=== PATIENT | female | born 1985 | race Caucasian/White ===

== ENCOUNTER → 2021-11-08 10:12 | Outpatient (CLI) | payer BC, SELFPAY ==
--- NOTE | ~2021-11-08 | US_ITS ---
EXAMINATION: US OB <= 14 weeks fetus DATE: 11/08/2021 10:34 INDICATION: Gestational dating TECHNIQUE: Real-time transabdominal and transvaginal obstetric ultrasound. FINDINGS: No prior studies for comparison. The uterus measures 12.9 x 7 x 9.3 cm. There is an intrauterine gestational sac, with pole iden tified. The crown rump length measures 4.7 cm, which correlates with a estimated gestational age of 11 weeks 3 days. heart tones are identified measuring 165 bpm. IMPRESSION: 1. SL IUP with an EGA of 11 weeks, 3 days (EDC by current ultrasound of 05/27/2022). Reviewed, dictated and finalized at location A. IMPRESSION: 1. SL IUP with an EGA of 11 weeks, 3 days (EDC by current ultrasound of 022).
== END ==
PROVIDERS: PCP Advanced Practice Midwife; Visit Provider Advanced Practice Midwife
DX: O26.851 Spotting complicating pregnancy, first trimester (principal); Z3A.11 11 weeks gestation of pregnancy
CPT/HCPCS: 76801

== ENCOUNTER → 2022-03-31 12:43 | Outpatient (CLI) | payer BC, SELFPAY ==
--- NOTE | ~2022-03-31 | US_ITS ---
EXAMINATION: US OB follow up DATE: 03/31/2022 13:06 INDICATION: Gestational size greater than dates. TECHNIQUE: Real-time transabdominal obstetric ultrasound. FINDINGS: Ultrasound dated 11/08/2021 There is a single living fetus in vertex presentation. The placenta is fundal/posterior without plac enta previa. cardiac activity and movement is noted with a heart rate of 133 beats per minute. T he amniotic fluid volume is normal. OSEAS measures 18.9 cm. The following biometric data were obtained: BPD: 80mm corresponds to gestational age 32 weeks 1 days. Head circumference: 296mm corresponds to gestational age 32 weeks 5 days. Abdominal circumference: 285mm corresponds to gestational age 32 weeks 4 days. Femur length: 60mm corresponds to gestational age 31 weeks 2 days. Estimated weight: 1908grams +/- 286grams, 42.9% by Hadlock method.] IMPRESSION: 1. Single living intrauterine in vertex presentation with an estimated gestational age of 32 weeks 0 days by inititial ultrasound. Appropriate interval growth. 2. Normal placenta. Reviewed, dictated and finalized at location A. IMPRESSION: 1. Single living intrauterine in vertex presentation with an estimat ed gestational age of 32 weeks 0 days by inititial ultrasound. Appropriate int erval growth. 2. Normal placenta.
== END ==
PROVIDERS: PCP Obstetrics & Gynecology Gynecology; Visit Provider Obstetrics & Gynecology Gynecology
DX: Z34.92 Encounter for supervision of normal pregnancy, unspecified, second trimester (principal); Z3A.32 32 weeks gestation of pregnancy
CPT/HCPCS: 76816

== ENCOUNTER 2022-04-28 09:26 | Outpatient (CLI) | payer BC, SELFPAY ==
[2022-04-28 09:44] VITALS: BP 122/80; PULSE 83
[2022-04-28 09:46] VITALS: BP 125/83; PULSE 75
[2022-04-28 09:54] LABS: Basophils Percent Auto 0.4 % (0.2-1.2); Eosinophils Percent Auto 0.4 % (0-4.4); Hematocrit 35.9 % (37.0-47.0); Hemoglobin 11.9 g/dL (12.0-15.0); Immature Granulocyte Absolute 0.06 K/mm3 (0.00-0.031); Immature Granulocyte Percent A 0.8 % (0-0.5); Lymphocytes Absolute Auto 1.29 K/mm3 (0.9-3.2); Lymphocytes Percent Auto 16.7 % (18.3-44.2); Mean Corpuscular HGB Conc 33.1 g/dl (32-36); Mean Corpuscular Hemoglobin 29.5 pg (26-34); Mean Corpuscular Volume 88.9 fl (80-100); Mean Platelet Volume 10.6 fl (7.4-10.4); Monocytes Absolute Auto 0.5 K/mm3 (0.1-0.6); Monocytes Percent Auto 6.5 % (2.6-8.5); Neutrophils Absolute Auto 5.8 K/mm3 (1.3-6.7); Neutrophils Percent Auto 75.2 % (45.5-73.1); Platelet Count Result 224 k/mm3 (150-375); Red Blood Count 4.04 M/mm3 (4.2-5.4); Red Cell Distribution Width 13.4 % (11.5-14.5); White Blood Count 7.7 K/mm3 (4.5-10.0)
[2022-04-28 10:01] VITALS: BP 112/73; PULSE 87
[2022-04-28 10:09] LABS: Alanine Aminotransferase 22 U/L (6-35); Albumin Level 3.6 g/dL (3.5-5.1); Alkaline Phosphatase 153 U/L (38-126); Anion Gap 10 mmol/L (8-16); Aspartate Amino Transferase 21 U/L (14-36); Bilirubin,Total 0.2 mg/dL (0.2-1.3); Blood Urea Nitrogen 8 mg/dL (7-17); Calcium 8.6 mg/dL (8.4-10.2); Carbon Dioxide 21 mmol/L (22-30); Chloride 105 mmol/L (98-107); Estimated Glomerular Filt Rate > 60; Glucose 86 mg/dL (65-110); Potassium 4.2 mmol/L (3.4-5.0); Sodium 136 mmol/L (137-145); Uric Acid 4.5 mg/dL (2.5-7.5)
[2022-04-28 10:16] VITALS: BP 116/81; PULSE 86
[2022-04-28 10:33] LABS: Add Urine Microscopic? YES; Appearance Urine Cloudy (Clear); Bacteria Urine 4+ /hpf; Bilirubin Urine Negative (Negative); Blood Urine Negative (Negative); Color Urine Yellow (Yellow); Creatinine Urine 124.1 mg/dL; Glucose Urine UA Negative (Negative); Ketones Urine Trace mg/dL (Negative); Leukocyte Esterase Ur 1+ LEU/UL (NEGATIVE); Mucus Urine Rare /lpf; Nitrate Urine Negative (Negative); Protein Urine Negative (Negative); Squamous Epithelial Cell Urine Few /hpf (Few); Total Protein Urine Random 6 mg/dL; Ur Ttl Prot Creatinine Ratio 0.05 mg/mg (0-0.20); Urobilinogen Urine 0.2 mg/dL (<2.0); pH Urine 6.5 (5.0-9.0)
--- NOTE | 2022-04-28 11:00 | PC.NURSE ---
Called Dante Marc CNM with lab results, and BPs. October D/C home with 24hr urine.
--- NOTE | 2022-04-28 11:06 | PM.OBTRLD ---
OB - Triage/Final Diagnosis Visit Information Reason for evaluation: other (elevated blood pressure. rule out preeclampsia. ) Comments/Additional reasons for admission: I have assessed the risk for this patient, Monie Ballard, and determined that she would benefit from observation care. Evaluation Laboratory results: Laboratory Tests 04/28/22 04/28/22 04/28/22 09:43 09:43 09:43 WBC 7.7 RBC 4.04 L Hgb 11.9 L Hct 35.9 L MCV 88.9 MCH 29.5 MCHC 33.1 RDW 13.4 Plt Count 224 MPV 10.6 H Immature Gran % (Auto) 0.8 H Neut % (Auto) 75.2 H Lymph % (Auto) 16.7 L [place] % (Auto) 6.5 Eos % (Auto) 0.4 Baso % (Auto) 0.4 Lymph # (Auto) 1.29 [place] # (Auto) 0.5 Eos # (Auto) 0.0 Baso # (Auto) 0.0 Abs Immat Gran (auto) 0.06 H Absolute Neuts (auto) 5.8 Absolute Nucleated RBC 0.0 Nucleated RBC % 0.0 Sodium Potassium Chloride Carbon Dioxide Anion Gap BUN Creatinine Estim Creat Clear Calc Estimated GFR Glucose Uric Acid Calcium Total Bilirubin AST ALT Alkaline Phosphatase Total Protein Albumin Urine Color Yellow Urine Appearance Cloudy H Urine pH 6.5 Ur Specific [place] 1.020 Urine Protein Negative Urine Glucose (UA) Negative Urine Ketones Trace Ur Blood (Man) Negative Urine Nitrate Negative Urine Bilirubin Negative Urine Urobilinogen 0.2 Ur Leukocyte Esterase 1+ H Urine RBC 3-5 H Urine WBC 10-15 H Ur Squamous Epith Cells Few Urine Bacteria 4+ H Urine Mucus Rare U Random Total Protein 6 Urine Creatinine 124.1 Protein/Creat Ratio 2 0.05 04/28/22 09:43 WBC RBC Hgb Hct MCV MCH MCHC RDW Plt Count MPV Immature Gran % (Auto) Neut % (Auto) Lymph % (Auto) [place] % (Auto) Eos % (Auto) Baso % (Auto) Lymph # (Auto) [place] # (Auto) Eos # (Auto) Baso # (Auto) Abs Immat Gran (auto) Absolute Neuts (auto) Absolute Nucleated RBC Nucleated RBC % Sodium 136 L Potassium 4.2 Chloride 105 Carbon Dioxide 21 L Anion Gap 10 BUN 8 Creatinine 0.70 Estim Creat Clear Calc Not Reportable Estimated GFR > 60 Glucose 86 Uric Acid 4.5 Calcium 8.6 Total Bilirubin 0.2 AST 21 ALT 22 Alkaline Phosphatase 153 H Total Protein 6.0 L Albumin 3.6 Urine Color Urine Appearance Urine pH Ur Specific [place] Urine Protein Urine Glucose (UA) Urine Ketones Ur Blood (Man) Urine Nitrate Urine Bilirubin Urine Urobilinogen Ur Leukocyte Esterase Urine RBC Urine WBC Ur Squamous Epith Cells Urine Bacteria Urine Mucus U Random Total Protein Urine Creatinine Protein/Creat Ratio 2 Vital signs: Vital Signs - 24 hr 04/28/22 09:44 04/28/22 09:46 04/28/22 10:01 Pulse Rate 83 75 87 Blood Pressure 122/80 125/83 112/73 04/28/22 10:16 Pulse Rate 86 Blood Pressure 116/81
== END 2022-04-28 11:10 | disposition home or self-care (01) ==
LOC: ANHOBOP 09:26 → ANHOBPP 09:27
PROVIDERS: Visit Provider Obstetrics & Gynecology Gynecology
DX: O13.9 Gestational [pregnancy-induced] hypertension without significant proteinuria, unspecified trimester (principal); Z3A.00 Weeks of gestation of pregnancy not specified
CPT/HCPCS: 36415; 59025; 80053; 81001; 82570; 84156; 84550; 85025; 87086; 99199

== ENCOUNTER 2022-04-29 12:16 | Outpatient (CLI) | payer BC, SELFPAY ==
[2022-04-29 12:16] VITALS: BMI 44.5
[2022-04-29 13:24] LABS: Collection Time Urine 24 HOURS
[2022-04-29 13:29] LABS: Total Volume 24 Hour Urine 2500 ml
[2022-04-29 13:30] LABS: Specific Gravity Ur 1.015
[2022-04-29 13:39] LABS: Creatinine Urine 71.9 mg/dL; Patient Weight 276 Lbs; Total Protein Urine 24 Hr 200 mg/24hr (28-141); Total Protein Urine Random 8 mg/dL
== END 2022-04-29 12:17 | disposition home or self-care (01) ==
LOC: ANHOBOP 12:32
PROVIDERS: Visit Provider Advanced Practice Midwife
DX: O13.9 Gestational [pregnancy-induced] hypertension without significant proteinuria, unspecified trimester (principal); Z3A.00 Weeks of gestation of pregnancy not specified
CPT/HCPCS: 81050; 82575; 84156

== ENCOUNTER 2022-05-12 10:04 | Inpatient (IN) | payer BC, SELFPAY ==
[2022-05-12] VITALS (18 sets, daily range): BP systolic 107–132; BP diastolic 54–86; PULSE 59–90; TEMP 36.2–37.2; O2SAT 99; BMI 44.6
--- NOTE | ~2022-05-12 | US_ITS ---
EXAMINATION: US OB limited DATE: 05/12/2022 11:01 INDICATION: Third trimester. Amniotic fluid index and presentation. TECHNIQUE: Real-time ultrasound of the pelvis was performed. COMPARISON: Ultrasound 03/31/2022 FINDINGS: There is a single fetus in vertex presentation. The placenta is posterior. heart rate is 151 b eats per minute (bpm). The amniotic fluid index is 11.4 cm cm, which is normal. IMPRESSION: 1. Single living fetus in vertex presentation. 2. Normal amniotic fluid index. Reviewed, dictated and finalized at location A. MAYONNAISE
[2022-05-12 11:32] LABS: Basophils Percent Auto 0.4 % (0.2-1.2); Eosinophils Percent Auto 0.2 % (0-4.4); Hematocrit 37.1 % (37.0-47.0); Hemoglobin 12.5 g/dL (12.0-15.0); Immature Granulocyte Absolute 0.08 K/mm3 (0.00-0.031); Immature Granulocyte Percent A 0.9 % (0-0.5); Lymphocytes Absolute Auto 1.45 K/mm3 (0.9-3.2); Lymphocytes Percent Auto 17.1 % (18.3-44.2); Mean Corpuscular HGB Conc 33.7 g/dl (32-36); Mean Corpuscular Hemoglobin 29.7 pg (26-34); Mean Corpuscular Volume 88.1 fl (80-100); Mean Platelet Volume 11.2 fl (7.4-10.4); Monocytes Absolute Auto 0.6 K/mm3 (0.1-0.6); Monocytes Percent Auto 6.6 % (2.6-8.5); Neutrophils Absolute Auto 6.3 K/mm3 (1.3-6.7); Neutrophils Percent Auto 74.8 % (45.5-73.1); Platelet Count Result 233 k/mm3 (150-375); Red Blood Count 4.21 M/mm3 (4.2-5.4); Red Cell Distribution Width 13.4 % (11.5-14.5); White Blood Count 8.5 K/mm3 (4.5-10.0)
--- NOTE | 2022-05-12 11:35 | LDADM ---
This patient, Monie Ballard, was admitted to Labor/Delivery/Recovery 106 on 05/12/22 at 10:04. Plans for labor, pain management and were discussed with patient. Patient/family oriented to hospital policies and general routines including ID bracelet, bed and alarms, visiting hours, pain management, procedures, bathroom and other care routines, personal items, smoking policy, room service/diet and guest tray routines, infant security routines, and visiting hours. Patient/Family are encouraged to report perceived risks to care and to ask questions if they do not understand what they are told or what they should do. See OBIX for further documentation.
[2022-05-12 11:46] LABS: Alanine Aminotransferase 23 U/L (6-35); Albumin Level 3.7 g/dL (3.5-5.1); Alkaline Phosphatase 201 U/L (38-126); Anion Gap 6 mmol/L (8-16); Aspartate Amino Transferase 21 U/L (14-36); Bilirubin,Total 0.4 mg/dL (0.2-1.3); Blood Urea Nitrogen 9 mg/dL (7-17); Calcium 8.9 mg/dL (8.4-10.2); Carbon Dioxide 20 mmol/L (22-30); Chloride 109 mmol/L (98-107); Estimated CRCL calculation 151 ml/min; Estimated Glomerular Filt Rate > 60; Glucose 81 mg/dL (65-110); Potassium 4.2 mmol/L (3.4-5.0); Sodium 135 mmol/L (137-145)
[2022-05-12] MEDS: miSOPROStol 25 MCG TABLET VAGINAL ×2 (13:20→17:38)
[2022-05-12 14:01] LABS: Uric Acid 5.3 mg/dL (2.5-7.5)
[2022-05-12 14:02] LABS: Creatinine Urine 137.6 mg/dL; Total Protein Urine Random 7 mg/dL; Ur Ttl Prot Creatinine Ratio 0.05 mg/mg (0-0.20)
[2022-05-12 15:30] LABS: Rapid Plasma Reagin Non-Reactive (NonReactive)
[2022-05-12 15:49] LABS: Glucose Point of Care 80 mg/dl (65-105)
--- NOTE | 2022-05-12 18:36 | WPDANESEPP ---
Anes - Eval Pre Procedure Procedure: Labor epidural Date/Time: 05/12/22 18:36 Surgeon: Marcelle Preop Diagnosis: Abdominal pain with contractions Pre Op Diagnosis: Induction of Labor Patient Data Age: 36 Gender: F Height: 1.68 m Weight: 125.5 kg Last Vital Signs Temp 99 F 05/12/22 15:00 Pulse 71 05/12/22 18:31 BP 120/67 05/12/22 18:31 O2 Del Method Room Air 05/12/22 11:33 Allergies Allergy/AdvReac Type Severity Reaction Status Date / Time No Known Allergies Allergy Verified 04/28/22 10:22 Home Medications Medication Instructions Recorded Confirmed Type Humulin N NPH U-100 Insulin 4 units subcut HS 04/28/22 04/28/22 History aspirin 81 mg tablet,delayed 81 mg PO DAILY 04/28/22 05/12/22 History release (Melyssa Low Dose Aspirin) ergocalciferol (vitamin D2) 1,250 1,250 mcg PO WEEKLY 04/28/22 04/28/22 History mcg (50,000 unit) capsule (Vitamin D2) prenat.vits,nicola,[id number] 1 tablet PO HS 04/28/22 04/28/22 History Laboratory Tests 05/12/22 05/12/22 05/12/22 11:18 11:18 11:18 WBC 8.5 K/mm3 K/mm3 (4.5-10.0) RBC 4.21 M/mm3 M/mm3 (4.2-5.4) Hgb 12.5 g/dL g/dL (12.0-15.0) Hct 37.1 % % (37.0-47.0) MCV 88.1 fl fl (80-100) MCH 29.7 pg pg (26-34) MCHC 33.7 g/dl g/dl (32-36) RDW 13.4 % % (11.5-14.5) Plt Count 233 k/mm3 k/mm3 (150-375) MPV 11.2 fl H fl (7.4-10.4) Immature Gran % (Auto) 0.9 % H % (0-0.5) Neut % (Auto) 74.8 % H % (45.5-73.1) Lymph % (Auto) 17.1 % L % (18.3-44.2) [place] % (Auto) 6.6 % % (2.6-8.5) Eos % (Auto) 0.2 % % (0-4.4) Baso % (Auto) 0.4 % % (0.2-1.2) Lymph # (Auto) 1.45 K/mm3 K/mm3 (0.9-3.2) [place] # (Auto) 0.6 K/mm3 K/mm3 (0.1-0.6) Eos # (Auto) 0.0 K/mm3 K/mm3 (0-0.3) Baso # (Auto) 0.0 K/mm3 K/mm3 (0.0-0.1) Abs Immat Gran (auto) 0.08 K/mm3 H K/mm3 (0.00-0.031) Absolute Neuts (auto) 6.3 K/mm3 K/mm3 (1.3-6.7) Absolute Nucleated RBC 0.0 K/mm3 K/mm3 (0.0-0.012) Nucleated RBC % 0.0 % % (0.0-0.2) Sodium Potassium Chloride Carbon Dioxide Anion Gap BUN Creatinine Estim Creat Clear Calc Estimated GFR Glucose POC Capillary Glucose Uric Acid 5.3 mg/dL mg/dL (2.5-7.5) Calcium Total Bilirubin AST ALT Alkaline Phosphatase Total Protein Albumin U Random Total Protein Urine Creatinine Protein/Creat Ratio 2 RPR Non-reactive (NonReactive) Blood Type Antibody Screen 05/12/22 05/12/22 05/12/22 11:18 11:18 11:20 WBC RBC Hgb Hct MCV MCH MCHC RDW Plt Count MPV Immature Gran % (Auto) Neut % (Auto) Lymph % (Auto) [place] % (Auto) Eos % (Auto) Baso % (Auto) Lymph # (Auto) [place] # (Auto) Eos # (Auto) Baso # (Auto) Abs Immat Gran (auto) Absolute Neuts (auto) Absolute Nucleated RBC Nucleated RBC % Sodium 135 mmol/L L mmol/L (137-145) Potassium 4.2 mmol/L mmol/L (3.4-5.0) Chloride 109 mmol/L H mmol/L (98-107) Carbon Dioxide 20 mmol/L L mmol/L (22-30) Anion Gap 6 mmol/L L mmol/L (8-16) BUN 9 mg/dL mg/dL (7-17) Creatinine 0.60 mg/dL L mg/dL (0.7-1.0) Estim Creat Clear Calc 151 ml/min ml/min Estimated GFR > 60 (5
[2022-05-12] MEDS: INSULIN HUMAN NPH (*BKC) 100 UNITS/ML SUB-Q (19:48)
--- NOTE | 2022-05-12 19:51 | WPDOBADMIT ---
Obstetrics - Admit Note Admission Note: record reviewed. No pertinent additions to the history and/or any subsequent changes in the physical findings that are not consistent with the expected course of the were found. Additions to the history and/or subsequent changes in the physical findings follow. Gestational hypertension at term.
[2022-05-12 20:09] LABS: Glucose Point of Care 89 mg/dl (65-105)
--- NOTE | 2022-05-12 20:58 | PM.OBPNLAB ---
Pain Control Date/time seen: 05/12/22 20:45 Pain control: tolerating well Comments: Reports mild, occasional cramping. Pelvic Exam Dilation (cm): 0 Effacement (%): 50 station: -3 Amniotic membrane status: Intact Comments: Cervix slightly softer than exam in the office this am but still moderate to firm consistency. Contractions Monitor mode: External Contraction frequency: 0 (irregular) Contraction pattern: Irregular Contraction intensity: Mild Status status: Category l Assessment and Plan Assessment: induction ongoing Comments: Given minimal changes (only slightly softer cervix), will place Cervidil for overnight cervical ripening. Discussed plan of care with Monie and her mother. Consider black balloon for cervical ripening/dilation if indicated by exam in the am. Anticipate vaginal . BPs WNL.
[2022-05-12] MEDS: DINOPROSTONE 10 MG VAG INSERT VAGINAL (21:43)
[2022-05-12] MEDS: diphenhydrAMINE HCl CAP 25 MG CAPSULE PO (23:43)
[2022-05-13] VITALS (156 sets, daily range): BP systolic 95–156; BP diastolic 38–112; PULSE 58–190; TEMP 36.1–36.9; O2SAT 84–100
[2022-05-13 07:01] LABS: Glucose Point of Care 91 mg/dl (65-105)
[2022-05-13] MEDS: OXYTOCIN 30 UNITS/NS 500 ML 30 UNITS/500 ML BAG 125 UNITS IV CONT (09:21)
[2022-05-13] MEDS: LACTATED RINGERS 1,000 ML 125 ML IV CONT ×2 (09:21→17:33)
--- NOTE | 2022-05-13 10:36 | PM.OBPNLAB ---
Pain Control Date/time seen: 05/13/22 0900 Pain control: tolerating well Pelvic Exam Dilation (cm): 1 Effacement (%): 40 station: -3 Amniotic membrane status: Intact Comments: outer os firm, internal os soft. Contractions Monitor mode: External Contraction frequency: 0 (irregular) Contraction pattern: Irregular Contraction intensity: Mild Status status: Category l Assessment and Plan Assessment: induction ongoing Comments: CNM at bedside. on initial cervical exam the cervix is closed and a small portion at the os feels very firm. Discussed with Monie the option of manually Stretching the scar tissue at her cervix and she is agreeable. gentle pressure was applied to the cervix with 1 digit and much gel. The cervix stretched to 1 cm. The internal portion palpates soft while the external portion remains firm. Discussed options with Monie and her partner at this time. Discussed the option of placing a Campos balloon for further cervical ripening and dilation. She is agreeable. Offered epidural before placement and she declines. Campos balloon inserted using a stylet through the cervical os easily. Inflated with 60 mL sterile saline easily. Stylet removed. Tubing secured patient's thigh. Patient tolerated procedure extremely well with minimal discomfort. Plan to have RN apply traction once hourly to the Campos balloon. Will consider amniotomy after Campos balloon is expelled. Anticipate vaginal .
[2022-05-13 11:11] LABS: Glucose Point of Care 103 mg/dl (65-105)
[2022-05-13 15:09] LABS: Glucose Point of Care 114 mg/dl (65-105)
--- NOTE | 2022-05-13 15:51 | PM.OBPNLAB ---
Pain Control Date/time seen: 05/13/22 15:45 Pain control: tolerating well Pelvic Exam Dilation (cm): 4 Effacement (%): 60 station: -3 Amniotic membrane status: Intact Contractions Monitor mode: External Contraction frequency: 0 (irregular) Contraction pattern: Irregular Contraction intensity: Mild Status status: Category l Assessment and Plan Assessment: induction ongoing Comments: discussed plan of care with parmjit and her partner. Cervical exam done around Campos balloon. Scar tissue at the outer os remains firm. But the outer os appears to be about 3 cm. Campos balloon deflated and removed. Exam then 3.5 cm, 60% effaced, -3 station. Discussed options with parmjit including Continuing Pitocin and amniotomy. Discussed risks and benefits of amniotomy. Also discussed possible benefit of IUPC placement. Parmjit desires to proceed. AROM performed. A small amount of clear fluid returned. IUPC inserted easily through cervix, clear fluid returned. She tolerated these procedures extremely well with minimal discomfort. Plan to titrate Pitocin as needed to achieve adequate contraction pattern. Anticipate vaginal .
--- NOTE | 2022-05-13 16:40 | WPDANESEPP ---
Anes - Eval Pre Procedure Procedure: Labor Epidural Date/Time: 05/13/22 16:40 Surgeon: Tari Preop Diagnosis: Pain during labor Pre Op Diagnosis: Induction of Labor Patient Data Age: 36 Gender: F Height: 1.68 m Weight: 125.5 kg Last Vital Signs Temp 36.4 C L 05/13/22 04:02 Pulse 68 05/13/22 16:36 BP 131/68 05/13/22 16:36 Pulse Ox 99 05/13/22 16:39 O2 Del Method Room Air 05/12/22 11:33 Allergies Allergy/AdvReac Type Severity Reaction Status Date / Time No Known Allergies Allergy Verified 04/28/22 10:22 Home Medications Medication Instructions Recorded Confirmed Type Humulin N NPH U-100 Insulin 4 units subcut HS 04/28/22 04/28/22 History aspirin 81 mg tablet,delayed 81 mg PO DAILY 04/28/22 05/12/22 History release (Melyssa Low Dose Aspirin) ergocalciferol (vitamin D2) 1,250 1,250 mcg PO WEEKLY 04/28/22 04/28/22 History mcg (50,000 unit) capsule (Vitamin D2) prenat.vits,nicola,[id number] 1 tablet PO HS 04/28/22 04/28/22 History Laboratory Tests 05/12/22 05/13/22 05/13/22 19:52 06:57 11:08 POC Capillary Glucose 89 mg/dl mg/dl 91 mg/dl mg/dl 103 mg/dl mg/dl (65-105) (65-105) (65-105) 05/13/22 15:05 POC Capillary Glucose 114 mg/dl H mg/dl (65-105) : gestational age HCG: positive Patient hx anesthesia problems: none Family hx anesthesia problems: none Results Review: All pre-operative results and documents have been reviewed as part of the pre-operative evaluation. [facility] Past Medical History Medical History Abnormal MRI of head Diabetes in Gestational diabetes Migraine headache with aura Morbid obesity MVP (mitral valve prolapse) and not yet delivered Family History Family History Mother Hypertension Grandparent Breast cancer Sibling Pre-eclampsia in third trimester Social History Social History Social History: Smoking status: Never smoker Second hand tobacco smoke exposure: No Alcohol intake: current Drinks per week: 2 Substance use: never Substance use type: does not use Lack of Transportation: No Lack of Food: Never True Current Housing: I Have Housing Concerned About Future Housing: No Difficulty Paying Gas/Electric Bills: No Difficulty Paying for Meds: No Currently Unemployed: No Education: High School Diploma/GED Difficulty w/ Childcare or Family Care: No Gender identity (if verbalized by the patient): Female Sexual Orientation (if Verbalized by the Patient): Straight or Heterosexual Spiritual care concerns: No Exam Day of Procedure 05/13/22 16:40
[2022-05-13 18:32] LABS: Glucose Point of Care 93 mg/dl (65-105)
[2022-05-13 23:19] LABS: Glucose Point of Care 96 mg/dl (65-105)
[2022-05-14] VITALS (49 sets, daily range): BP systolic 83–132; BP diastolic 43–90; PULSE 25–114; RESP 16–18; TEMP 36.4–36.9; O2SAT 83–100
--- NOTE | 2022-05-14 00:55 | PM.OBPRVD ---
OB - Delivery Note Procedure Delivery date: 05/14/22 Procedure: Events: Gestational Diabetes and Gestational Hypertension Induction method: Per Misoprostol Protocol and Per Cervidil Protocol Delivery augmentation: Rupture of Membranes and Pitocin Delivery monitor: External FHT, External Uterine and Internal Uterine Route of delivery: Episiotomy description: None Laceration Description: Perineal - 1st Degree Delivery repair: vicryl Specimen: No Quantitative Blood Loss (ml): 100 Anesthesia type: Epidural Disposition: Floor Narrative: CNM called when patient was complete dilation and feeling urge to push. Patient quickly brought the head to . She delivered the head slowly over 2 pushes. There was fair restitution. The anterior, right, shoulder delivered easily followed by the posterior shoulder and the remainder of the . The infant was placed on the maternal abdomen and care was assumed by the nursery team. The cord was doubly clamped and cut after 1 minute of life. Cord blood and gases were obtained. The placenta was delivered several minutes later after gentle fundal massage and cord traction. A true knot was observed. A first-degree perineal laceration was repaired in the usual fashion. [place] Baby Date of : 05/14/22 Time of : 00:06 Weeks of gestation at delivery: 38 Weight (pounds): 6 Weight (ounces): 6 presentation: vertex position: Left Occiput Anterior Placenta delivery description: Spontaneous Cord Vessel Description: 3 Vessels, True Knot, Clamped/Cut (after one minute of life) and Delayed Cord Clamping score one minute: 8 score five minutes: 8
--- NOTE | 2022-05-14 01:01 | PM.OBDSVD ---
DS: Admitting Diagnosis Discharge Date 05/16/22 Admitting Diagnosis at 37weeks 6 days AMA GDMA2 gHTN Rubella Non-Immune Status CF Carrier, (FOB declined testing) DS: Discharge Diagnosis Discharge Diagnosis (1) Obesity: Code(s): E66.9 - Obesity, unspecified Status: Acute (2) GDM, class A2: Code(s): O24.419 - Gestational diabetes mellitus in , unspecified control Status: Acute (3) Gestational hypertension: Code(s): O13.9 - Gestational [-induced] hypertension without significant proteinuria, unspecified trimester Status: Acute (4) Cystic fibrosis gene carrier: Code(s): Z14.1 - Cystic fibrosis carrier Status: Acute (5) Mother currently breastfeeds: Status: Acute (6) Rubella non-immune status, delivered, current hospitalization: Code(s): O99.892 - Other specified diseases and conditions complicating childbirth; Z28.39 - Other underimmunization status Status: Acute OB - DS: Summary Hospital Course Hospital Course: Uncomplicated OB Procedures : NST and Ultrasound OB Procedures Intrapartum: Spontaneous Vag Delivery OB Procedures: : Rubella lg Peripartum Data Infant Delivery Method: Natural Vaginal Laceration Description: Perineal - 1st Degree Episiotomy description: None complications: perineal laceration Status at Discharge Functional status at discharge: independent ambulation Overall status at discharge: patient is back to baseline Time Spent with Patient Time attestation: Total time spent providing and/or coordinating discharge services: Exam Narrative: Alert and oriented. Mood is pleasant and cooperative. Urinating without difficulty. Denies passing any large clots. Perineum with minimal edema. Const: General: healthy appearing, no acute distress and alert Orientation/consciousness: patient oriented x3 Limitations: no limitations Resp: Effort & Inspection: normal respiratory effort Auscultation: clear to auscultation bilaterally Cardio: Rate: regular rate GI: Inspection: normal to inspection : Other: Fundus 3 below U Skin: General skin exam: no rashes or lesions noted Neuro: General: patient oriented x3 Extrem: General: normal to inspection Psych: Appearance: grossly normal Mental Status: mental status grossly normal Affect: normal affect Thought process: Normal thought process present DS: Data Data Completed and Pending Labs on day of discharge: Labs from last 24 hours 1105/13/22 05/13/22 23:16 18:28 15:05 POC Capillary Glucose 96 93 114 H 05/13/22 05/13/22 11:08 06:57 POC Capillary Glucose 103 91 Discharge Plan Discharge Attending physician on discharge: Meaghan Ibanez Discharging Clinician: Ramila Marc Anticipated Discharge Date/Time: 05/16/22 01:05 Patient Disposition: Home, Self-Care Activity: may shower Diet: as tolerated and regular Discharge Instructions: Continue taking your vitamin and any other supplements as previously directed (Examples: Iron, Vitamin D). You may take Tylenol 1000mg over the counter every 6 hours as needed for pain. Do not exceed 4000mg of Tylenol daily. You may continue using tucks pads and dermoplast spray if needed for a few more days. Patient Instructions: Antibiotic Form Stand Alone Forms: General Discharge Information Follow-up/Referrals: Ramila Marc, CNM [Certified Nurse Loom Fixer Apprentice] - (6 week post visit) Discharge Medications: New polysaccharide iron complex 150 mg iron Capsule 150 mg PO 1XD 30 Days Qty: 30 0RF docusate sodium 100 mg Capsule 100 mg PO BID PRN (Reason: Constipation) 14 Days Qty: 30 0RF ibuprofen 600 mg Tablet 600 mg PO Q6H PRN (Reason: Cramping) 14 Days Qty: 30 0RF Continued ergocalciferol (vitamin D2) [Vitamin D2] 1,250 mcg (50,000 unit) Capsule 1,250 mcg PO WEEKLY #2 Tablet 1 tab
[2022-05-14] MEDS: WITCH HAZEL 40 PADS 1 PAD TOPICAL (02:55)
[2022-05-14] MEDS: BENZOCAINE 20% AER SPR (*SP) 56 GM CAN 1 SPRAY TOPICAL (02:55)
[2022-05-14] MEDS: DOCUSATE SODIUM 100 MG CAPSULE PO ×2 (08:03→16:18)
[2022-05-14] MEDS: MULTIVIT/MIN/PREN/FOL AC/IRON TABLET 1 TAB PO (08:03)
--- NOTE | 2022-05-14 14:07 | WPDANLDPN2 ---
Anes-Prog Note L&D Date/Time: 05/14/22 14:07 Comfortable throughout: labor and delivery Neuraxial method: epidural Epidural/Spinal procedure site: clean & non-tender Neuro status: Neuro function grossly intact. Cardiovascular status: normal Respiratory status: normal Airway patency: baseline Mental status: baseline Post-Op hydration status: normal Vital Signs: Last Vital Signs Temp 36.8 C 05/14/22 11:45 Pulse 74 05/14/22 11:45 Resp 16 05/14/22 11:45 BP 108/67 05/14/22 11:45 Pulse Ox 98 05/14/22 11:45 O2 Del Method Room Air 05/14/22 07:30 Pain score (VAS): 0 I/O: Intake & Output 05/13/22 05/14/22 05/14/22 23:59 07:59 15:59 Intake Total 1000 2000 220 Output Total 163 200 Balance 1000 1837 20 Post-procedural complaints: none Patient feedback: Patient satisfied with anesthetic care.
[2022-05-14] MEDS: IBUPROFEN 600 MG TABLET PO (14:57)
[2022-05-15 00:48] VITALS: BP 117/80; PULSE 73; RESP 16; TEMP 36.6; O2SAT 98
[2022-05-15] MEDS: IBUPROFEN 600 MG TABLET PO (02:42)
[2022-05-15 06:21] LABS: Hematocrit 33.2 % (37.0-47.0); Hemoglobin 10.9 g/dL (12.0-15.0)
[2022-05-15] MEDS: MULTIVIT/MIN/PREN/FOL AC/IRON TABLET 1 TAB PO (07:53)
[2022-05-15] MEDS: DOCUSATE SODIUM 100 MG CAPSULE PO (07:53)
[2022-05-15 08:20] VITALS: BP 132/79; PULSE 93; RESP 18; TEMP 37.6; O2SAT 100
--- NOTE | 2022-05-15 09:06 | PM.OBPNVD ---
OB - PN: Subj Subjective Date/time seen: 05/15/22 0745 Patient comments: no complaints, pain well controlled and tolerating diet [place] baby status: doing well and nursing well [place] feeding status: exclusively breast feeding OB - PN: Obj Data Labs CBC & Chem 7: 05/15/22 05:45 05/12/22 11:18 Labs: Laboratory Results - last 24 hr 05/15/22 05:45 Hgb 10.9 L Hct 33.2 L OB - PN A/P Assessment and Plan (1) Rubella non-immune status, delivered, current hospitalization: Code(s): O99.892 - Other specified diseases and conditions complicating childbirth; Z28.39 - Other underimmunization status Status: Acute Assessment and Plan: MMR prior to DC (2) Mother currently breastfeeds: Status: Acute Assessment and Plan: well. Discussed resources. (3) Cystic fibrosis gene carrier: Code(s): Z14.1 - Cystic fibrosis carrier Status: Acute (4) Gestational hypertension: Code(s): O13.9 - Gestational [-induced] hypertension without significant proteinuria, unspecified trimester Status: Acute Assessment and Plan: BPs WNL (5) GDM, class A2: Code(s): O24.419 - Gestational diabetes mellitus in , unspecified control Status: Acute Assessment and Plan: Plan 2hour GTT at 6 weeks Plan Pt desires discharge home today Plan day: 1 Plan: discharge home Time Spent With Patient Time: Total time spent is greater than 50% in coordination of care (as documented) at patient's floor/unit and/or counseling patient: Time with patient: 15 - 25 minutes Review of Systems Review of Systems: All systems reviewed & are unremarkable except as noted in HPI and below Exam Narrative: Alert and oriented. Mood is pleasant and cooperative. Urinating without difficulty. Denies passing any large clots. Perineum with minimal edema. Const: General: healthy appearing, no acute distress and alert Orientation/consciousness: patient oriented x3 Limitations: no limitations Resp: Effort & Inspection: normal respiratory effort Auscultation: clear to auscultation bilaterally Cardio: Rate: regular rate GI: Inspection: normal to inspection : Other: Fundus 3 below U Skin: General skin exam: no rashes or lesions noted Neuro: General: patient oriented x3 Extrem: General: normal to inspection Psych: Appearance: grossly normal Mental Status: mental status grossly normal Affect: normal affect Thought process: Normal thought process present
--- NOTE | 2022-05-15 10:30 | PC.NURSE ---
Patient viewed the discharge video [facility], The First Two Weeks . Patient was given the opportunity and encouraged to ask questions. Patient verbalized understanding of information shared and has been given the mother/baby guide for home reference.
[2022-05-15] MEDS: MEASLES,MUMPS,RUBELLA VACCINE 0.5 ML VIAL SUB-Q (11:00)
[2022-05-17 13:08] VITALS: BP 128/84; PULSE 88; RESP 20; TEMP 37.2; O2SAT 99
== END 2022-05-15 11:41 | disposition home or self-care (01) | DRG 807 ==
LOC: ANHLDR 05-14 01:12 → ANHOB2 05-14 03:16
PROVIDERS: Admitting Provider Advanced Practice Midwife; Visit Provider Advanced Practice Midwife
DX: O13.4 Gestational [pregnancy-induced] hypertension without significant proteinuria, complicating childbirth (principal); Z37.0 Single live birth; O70.0 First degree perineal laceration during delivery; O69.2XX0 Labor and delivery complicated by other cord entanglement, with compression, not applicable or unspecified; O99.214 Obesity complicating childbirth; O76 Abnormality in fetal heart rate and rhythm complicating labor and delivery; O24.429 Gestational diabetes mellitus in childbirth, unspecified control; Z3A.38 38 weeks gestation of pregnancy; Z14.1 Cystic fibrosis carrier; Z28.39 Other underimmunization status
CPT/HCPCS: 36415; 76815; 80053; 82570; 82948; 84156; 84550; 85014; 85018; 85025; 86592; 86850; 86900; 86901; 90710; A9270; J1815; J2590; J2795; J7120